=== PATIENT | female | born 1975 | race Hispanic/Latino ===

== ENCOUNTER 2022-03-22 12:31 | Outpatient (CLI) | payer BC | END 2022-03-22 12:32 | disposition home or self-care (01) | LOC: CSHLAB 12:31 | PROVIDERS: ATTEND Internal Medicine Gastroenterology | DX: Z20.822 Contact with and (suspected) exposure to COVID-19 (principal) | CPT/HCPCS: 87811 ==

== ENCOUNTER 2022-03-25 08:33 | Day surgery (SDC) | payer BC ==
[2022-03-22 09:57] VITALS: BMI 36.6
[2022-03-25] MEDS ORDERED: PROPOFOL 0 ML ONE (11:44)
[2022-03-25] MEDS ORDERED: Lidocaine 1% PF 5 ML VIAL ONE (11:44)
[2022-03-25] MEDS ORDERED: PROPOFOL 20 ML ONE (11:44)
== END 2022-03-25 12:19 | disposition home or self-care (01) ==
LOC: CSHSDC 08:33
PROVIDERS: ATTEND Internal Medicine Gastroenterology
PROC: 0DJD8ZZ Inspection of Lower Intestinal Tract, Via Natural or Artificial Opening Endoscopic (ICD-10-PCS; principal; 2022-03-25)
DX: Z12.11 Encounter for screening for malignant neoplasm of colon (principal); I12.9 Hypertensive chronic kidney disease with stage 1 through stage 4 chronic kidney disease, or unspecified chronic kidney disease; E11.22 Type 2 diabetes mellitus with diabetic chronic kidney disease; N18.9 Chronic kidney disease, unspecified; E78.5 Hyperlipidemia, unspecified; Z20.822 Contact with and (suspected) exposure to COVID-19
CPT/HCPCS: J2704